=== PATIENT | female | born 1990 | race Two or more races ===

== ENCOUNTER 2019-06-01 12:33 | Emergency (ER) | payer OTHER ==
[2019-06-01 13:18] VITALS: TEMP 98.8; BMI 24.7
--- NOTE | 2019-06-01 14:52 | PDOC ---
History of Present Illness - General Chief Complaint: Bite Stated Complaint: SENT BY [facility]/DOG BITE Time Seen by Provider: 06/01/19 13:57 - History of Present Illness Initial Comments: 06/01/19 14:48 28-year-old female without comorbidities presents for evaluation of a dog bite. Patient was breaking up a fight between a pimple and her dog when she was bitten on both hands. The dog she was bitten by was a neighbor's dog which has the capacity to be observed. The funeral director/embalmer/owner of the dog is uncertain of the vaccination status. Patient is up-to-date on tetanus. She is also requesting a test. Past History - Past Medical History Allergies/Adverse Reactions: Allergies Allergy/AdvReac Type Severity Reaction Status Date / Time No Known Allergies Allergy Verified 06/01/19 13:15 Home Medications: Ambulatory Orders Amox-Tr/K Cl [Augmentin - 875Mg Tablet] 1 tab PO BID #20 tablet 06/01/19 - Psycho Social/Smoking Cessation Hx Smoking History: Never smoked Have you smoked in the past 12 months: No Information on smoking cessation initiated: No Hx Alcohol Use: No Drug/Substance Use Hx: No Review of Systems - Review of Systems Integumentary: Yes: See HPI *Physical Exam - Vital Signs Last Vital Signs Temp Pulse Resp BP Pulse Ox 98.8 F 112 H 16 131/81 107 H 06/01/19 13:15 06/01/19 13:15 06/01/19 13:15 06/01/19 13:15 06/01/19 13:15 - Physical Exam 06/01/19 14:49 Bilateral hand skin color and temperature normal range of motion is full in all joints. 06/01/19 14:50 Small puncture wounds on the right second finger and left thumb no discrete lacerations. Otherwise neurovascular intact ED Treatment Course - ADDITIONAL ORDERS Additional order review: Laboratory Results 06/01/19 14:27 Urine HCG, Qual Negative Medical Decision Making - Medical Decision Making 06/01/19 14:50 No evidence of foreign body on hand x-rays Augmentin for prophylaxis [facility] was called patient does not meet criteria for rabies vaccination. The animal which bit her can be observed information was faxed over to the Department of Health. Tetanus is current on patient she does not require further treatment other than Augmentin for dog bite. Follow-up with primary care physician Discharge - Discharge Information Problems reviewed: Yes Clinical Impression/Diagnosis: Dog bite Condition: Stable Disposition: HOME - Admission No - Additional Discharge Information Prescriptions: Amox-Tr/K Cl [Augmentin - 875Mg Tablet] 1 tab PO BID #20 tablet - Follow up/Referral Referrals: Kristin Rocha MD [Staff Physician] - - Patient Discharge Instructions Additional Instructions: Return to the emergency room for worsening symptoms and without fail please follow-up with internal medicine in 2 to 3 days for further evaluation and treatment options. Please follow-up with Department of Health with the information of the dog funeral director/embalmer/owner of the animal that bit you. Return to the emergency room for any further issues or signs of infection from your bite such as redness swelling drainage or increasing pain. You may take Tylenol and Motrin as directed for pain. Your test is negative. - Post Discharge Activity
[2019-06-01 15:51] VITALS: BP 131/80; PULSE 99
== END 2019-06-01 15:15 | disposition home or self-care (01) ==
LOC: JERFT 12:33
DX: S61.451A Open bite of right hand, initial encounter (principal); W54.0XXA Bitten by dog, initial encounter; Y93.89 Activity, other specified; Y92.410 Unspecified street and highway as the place of occurrence of the external cause
CPT/HCPCS: 73130-TC-LT-FY; 73130-TC-RT-FY; 84703; 99281-25